=== PATIENT | female | born 1990 | race Two or more races ===

== ENCOUNTER 2022-10-31 14:30 | Inpatient (IN) | payer OTHER, BC ==
[~2022-10-31] VITALS: Ht 160 cm; Wt 70.3 kg
[2022-11-08] MEDS ORDERED: PRENATAL TABLE1 EAC1 (04:14)
== END 2022-11-10 10:02 | disposition home or self-care (01) | DRG 807 ==
LOC: EDSTATUS 14:30 → LDR 11-08 03:59 → OB/GYN 11-08 15:15 → LDR 11-10 14:30
PROVIDERS: ADMIT Obstetrics & Gynecology; ATTEND Obstetrics & Gynecology
PROC: 10E0XZZ Delivery of Products of Conception, External Approach (ICD-10-PCS; principal; 2022-11-08)
PROC: 0W8NXZZ Division of Female Perineum, External Approach (ICD-10-PCS; 2022-11-08)
PROC: 4A1HXCZ Monitoring of Products of Conception, Cardiac Rate, External Approach (ICD-10-PCS; 2022-11-08)
DX: O80 Encounter for full-term uncomplicated delivery (principal); Z37.0 Single live birth; Z3A.39 39 weeks gestation of pregnancy; Z20.822 Contact with and (suspected) exposure to COVID-19

== ENCOUNTER 2022-11-05 08:05 | Outpatient (CLI) | payer OTHER, BC | END 2022-11-05 09:53 | disposition home or self-care (01) | LOC: NST 08:05 | PROVIDERS: ATTEND Obstetrics & Gynecology Gynecology | DX: Z34.83 Encounter for supervision of other normal pregnancy, third trimester (principal) ==